=== PATIENT | female | born 1960 | race Caucasian/White ===

== ENCOUNTER → 2020-07-05 | Outpatient (CLI) | payer BC ==
[~2020-07-05] MED LIST: CEPH500 PO; DIPH50; ERGO400 PO; NAPR550 PO; OLME20; Percocet 5-3251 EACH PO; Zantac150 MG PO
[2020-07-05 20:58] LABS: CHOL/HDL RATIO 3.3; Cholesterol 273 mg/dL (50-200); HDL Cholesterol 82 mg/dL (>39); LDL/HDL RATIO 1.7; Low Density Lipoprotein Chol 138 mg/dL (0-110); Triglycerides 265 mg/dL (30-160); Very Low Density Lipoprot Chol 53 mg/dL (6-32)
== END ==
LOC: LAB 19:50 → LAB SHORT 19:50
PROVIDERS: Family Medicine
DX: Z13.29 Encounter for screening for other suspected endocrine disorder (principal); E78.5 Hyperlipidemia, unspecified
CPT/HCPCS: 80061; 84443

== ENCOUNTER 2021-06-06 21:20 | Emergency (ER) | payer BC ==
[~2021-06-06] VITALS: Ht 157.5 cm; Wt 115.7 kg
== END 2021-06-07 00:34 | disposition home or self-care (01) ==
LOC: ER 21:20
DX: F45.8 Other somatoform disorders (principal); R13.10 Dysphagia, unspecified; Z88.2 Allergy status to sulfonamides; Z88.5 Allergy status to narcotic agent; Z88.8 Allergy status to other drugs, medicaments and biological substances; Z87.891 Personal history of nicotine dependence
CPT/HCPCS: 71045; 96374; 99283-25; A9270; J1610

== ENCOUNTER → 2021-09-13 | Outpatient (CLI) | payer BC ==
[2021-09-13 18:54] LABS: BASOPHILS ABSOLUTE AUTO 0.08 K/mm3 (0.00-0.23); BASOPHILS PERCENT AUTO 1 % (0-2); EOSINOPHILS ABSOLUTE AUTO 0.14 K/mm3 (0.00-0.68); EOSINOPHILS PERCENT AUTO 1 % (0-6); Hematocrit 41.1 % (33.0-51.0); Hemoglobin 13.5 g/dL (11.5-16.0); IMMATURE GRAN ABSOLUTE AUTO 0.09 K/mm3 (0.00-0.10); IMMATURE GRAN PERCENT AUTO 1 % (0-1); LYMPHOCYTES ABSOLUTE AUTO 2.86 K/mm3 (0.84-5.20); LYMPHOCYTES PERCENT AUTO 24 % (21-46); MONOCYTES ABSOLUTE AUTO 1.17 K/mm3 (0.16-1.47); MONOCYTES PERCENT AUTO 10 % (4-13); Mean Corpuscular HGB 33.8 pg (26.0-34.0); Mean Corpuscular HGB Conc 32.8 g/dL (31.5-36.5); Mean Corpuscular Volume 103 fL (80-100); Mean Platelet Volume 10.2 fL (9.1-12.4); NEUTROPHILS ABSOLUTE AUTO 7.68 K/mm3 (1.96-9.15); NEUTROPHILS PERCENT AUTO 64 % (41-73); Platelet Count 313 K/mm3 (150-400); RDW Coefficient Variation 13.3 % (11.7-14.2); RDW Standard Deviation 51.1 fL (35.1-46.3); Red Blood Cell Count 3.99 M/mm3 (3.80-5.20); White Blood Cell Count 12.02 K/mm3 (4.00-11.30)
[2021-09-13 19:16] LABS: Albumin, Blood 3.5 g/dL (3.4-5.0); Albumin/Globulin Ratio 0.8 (0.8-1.8); Bilirubin, Total 0.2 mg/dL (0.1-1.0); Bun/Creatinine Ratio 29.5 (12.0-20.0); Calcium, Blood 10.2 mg/dL (8.5-10.1); Creatinine, Blood 1.12 mg/dL (0.40-1.00); Globulin, Blood 4.3 g/dL (2.2-4.0); Potassium, Blood 4.7 mmol/L (3.5-5.5); Total Protein, Blood 7.8 g/dL (6.4-8.2)
== END | disposition home or self-care (01) ==
LOC: LAB 15:30 → LAB SHORT 15:30
PROVIDERS: Physician Assistant
DX: I10 Essential (primary) hypertension (principal)
CPT/HCPCS: 80053; 85025

== ENCOUNTER → 2021-09-20 | Outpatient (CLI) | payer BC | LOC: LAB SHORT 17:00 → LAB 17:00 | DX: R10.9 Unspecified abdominal pain (principal) | CPT/HCPCS: 87086 ==

== ENCOUNTER → 2022-01-22 | Outpatient (CLI) | payer BC ==
[2022-01-24 08:11] LABS: HIV AB/P24 AG SCREEN Non Reactive (Non Reactive)
== END | disposition home or self-care (01) ==
LOC: LAB SHORT 19:09 → LAB 19:09
PROVIDERS: Family Medicine
DX: Z00.00 Encounter for general adult medical examination without abnormal findings (principal)
CPT/HCPCS: 87389

== ENCOUNTER 2022-05-02 08:58 | Day surgery (SDC) | payer BC ==
[~2022-05-02] VITALS: Ht 160 cm; Wt 108.3 kg
[2022-05-02] MEDS ORDERED: PROBIOTIC1 EA13 PO (09:40)
[2022-05-02] MEDS ORDERED: LANS30EC PO (09:42)
--- NOTE | 2022-05-02 10:39 | NUR ---
05/02/22 1039 Gigi Hoyt HISTORY,CHART, MEDICATIONS AND ALLERGIES REVIEWED BEFORE START OF PROCEDURE. PATIENT CONFIRMS NPO STATUS AND AGREES WITH SCHEDULED PROCEDURE. 3-LEAD EKG REVIEWED WITH PHYSICIAN PRIOR TO START OF PROCEDURE. MONITOR INTACT WITH CONTINUOUS PULSE OXIMETRY, 3-LEAD EKG, CAPNOGRAPHY AND INTERMITTENT BP. SUPPLEMENTAL O2 TO BE TITRATED THROUGHOUT PROCEDURE TO MAINTAIN O2 SATURATION ABOVE 90%. PATIENT DETERMINED TO BE ASA APPROPRIATE FOR MODERATE SEDATION PRIOR TO START OF PROCEDURE BY DR. YEH.
--- NOTE | 2022-05-02 11:43 | NUR ---
Patient up to Ambulate independently. Gait steady. Discharge instructions reviewed with patient. Patient verbalizes understanding. Copy given to patient to take home. Discharged via wheelchair to private car for ride home W/FRIEND
== END 2022-05-02 23:54 | disposition home or self-care (01) ==
LOC: ORSCMMR 08:58 → ORD 10:00 → ORSCMMR 23:54
PROVIDERS: Internal Medicine Gastroenterology
PROC: 0DB78ZX Excision of Stomach, Pylorus, Via Natural or Artificial Opening Endoscopic, Diagnostic (ICD-10-PCS; principal; 2022-05-02 10:00)
PROC: 0DJD8ZZ Inspection of Lower Intestinal Tract, Via Natural or Artificial Opening Endoscopic (ICD-10-PCS; principal; 2022-05-02 10:00)
PROC: 0DB48ZX Excision of Esophagogastric Junction, Via Natural or Artificial Opening Endoscopic, Diagnostic (ICD-10-PCS; principal; 2022-05-02 10:00)
PROC: 0DB58ZX Excision of Esophagus, Via Natural or Artificial Opening Endoscopic, Diagnostic (ICD-10-PCS; principal; 2022-05-02 10:00)
DX: Z12.11 Encounter for screening for malignant neoplasm of colon (principal); K21.9 Gastro-esophageal reflux disease without esophagitis; K29.70 Gastritis, unspecified, without bleeding; G47.33 Obstructive sleep apnea (adult) (pediatric); I10 Essential (primary) hypertension; E66.01 Morbid (severe) obesity due to excess calories; Z68.41 Body mass index [BMI] 40.0-44.9, adult; Z79.899 Other long term (current) drug therapy
CPT/HCPCS: 43239; G0121; 88305; 88342; A9270; J2250; J3010; J7120

== ENCOUNTER → 2022-09-03 | Outpatient (CLI) | payer BC ==
[~2022-09-03] MED LIST changes: +LANS30EC PO; +PROBIOTIC1 EA13 PO
== END ==
LOC: LAB 15:15 → LAB SHORT 15:15
DX: R07.0 Pain in throat (principal)
CPT/HCPCS: 87081

== ENCOUNTER → 2023-06-14 | Outpatient (CLI) | payer BC ==
[2023-06-17 11:07] LABS: Alanine Aminotransfer (ALT/SGP 29 U/L (12-78); Albumin, Blood 3.4 g/dL (3.4-5.0); Alk Phos 78 U/L (50-136); Anion Gap 5 mmol/L (6-16); Aspartate Aminotrans (AST/SGOT 25 U/L (12-37); Bilirubin, Total 0.3 mg/dL (0.1-1.0); Blood Urea Nitrogen 22 mg/dL (8-24); CHOL/HDL RATIO 3.8; CO2, Blood 26 mmol/L (21-32); Calcium, Blood 9.4 mg/dL (8.5-10.1); Chloride, Blood 107 mmol/L (98-108); Cholesterol 229 mg/dL (50-200); Globulin, Blood 3.4 g/dL (2.2-4.0); Glomerular Filtration Rate 56 (60-); Glucose, Blood 144 mg/dL (70-99); HDL Cholesterol 61 mg/dL (>39); LDL/HDL RATIO 1.9; Low Density Lipoprotein Chol 116 mg/dL (0-110); Potassium, Blood 4.6 mmol/L (3.5-5.5); Sodium, Blood 138 mmol/L (136-145); Total Protein, Blood 6.8 g/dL (6.4-8.2); Triglycerides 261 mg/dL (30-160); Very Low Density Lipoprot Chol 52 mg/dL (6-32)
== END ==
LOC: LAB SHORT 16:50 → LAB 16:50
PROVIDERS: Family Medicine
DX: Z13.6 Encounter for screening for cardiovascular disorders (principal); I10 Essential (primary) hypertension
CPT/HCPCS: 80053; 80061

== ENCOUNTER 2024-05-11 20:39 | Inpatient (IN) | payer BC ==
[~2024-05-11] VITALS: Ht 160 cm; Wt 120.2 kg
[2024-05-11 22:54] LABS: BASOPHILS ABSOLUTE AUTO 0.06 K/mm3 (0.00-0.23); BASOPHILS PERCENT AUTO 0 % (0-2); EOSINOPHILS ABSOLUTE AUTO 0.11 K/mm3 (0.00-0.68); EOSINOPHILS PERCENT AUTO 1 % (0-6); Hematocrit 39.9 % (33.0-51.0); Hemoglobin 13.5 g/dL (11.5-16.0); IMMATURE GRAN ABSOLUTE AUTO 0.08 K/mm3 (0.00-0.10); IMMATURE GRAN PERCENT AUTO 1 % (0-1); LYMPHOCYTES PERCENT AUTO 14 % (21-46); MONOCYTES ABSOLUTE AUTO 1.14 K/mm3 (0.16-1.47); MONOCYTES PERCENT AUTO 8 % (4-13); Mean Corpuscular HGB 34.2 pg (26.0-34.0); Mean Corpuscular HGB Conc 33.8 g/dL (31.5-36.5); Mean Corpuscular Volume 101 fL (80-100); Mean Platelet Volume 10.6 fL (9.1-12.4); NEUTROPHILS ABSOLUTE AUTO 10.22 K/mm3 (1.96-9.15); NEUTROPHILS PERCENT AUTO 76 % (41-73); Platelet Count 263 K/mm3 (150-400); RDW Coefficient Variation 13.8 % (11.7-14.2); Red Blood Cell Count 3.95 M/mm3 (3.80-5.20); White Blood Cell Count 13.51 K/mm3 (4.00-11.30)
[2024-05-11 23:06] LABS: Albumin, Blood 3.4 g/dL (3.4-5.0); Albumin/Globulin Ratio 0.8 (0.8-1.8); Bilirubin, Total 0.4 mg/dL (0.1-1.0); Bun/Creatinine Ratio 17.8 (12.0-20.0); Calcium, Blood 9.8 mg/dL (8.5-10.1); Creatinine, Blood 0.96 mg/dL (0.40-1.00); Globulin, Blood 4.2 g/dL (2.2-4.0); Potassium, Blood 4.5 mmol/L (3.5-5.5); Total Protein, Blood 7.6 g/dL (6.4-8.2)
[2024-05-11] MEDS ORDERED: CefTRIAXone Sodium 2,000 MG in NS 100 ML IV ONE (23:55)
[2024-05-11] MEDS ORDERED: NS 1,000 ML IV SCH (23:55)
[2024-05-11] MEDS ORDERED: Vancomycin HCL 2,000 MG in NS 500 ML IV ONE (23:55)
[2024-05-12] MEDS ORDERED: Ketorolac Tromethamine 15mg Vial IV ONE ×2 (00:05→23:55)
[2024-05-12] MEDS ORDERED: Vancomycin HCL 2,000 MG in NS 500 ML IV ONE (00:20)
[2024-05-12] MEDS ORDERED: Acetaminophen 325 MG TABLET PO PRN (01:20)
[2024-05-12] MEDS ORDERED: Ondansetron HCl 2 MG / ML 2ML Vial IV PRN (01:25)
[2024-05-12] MEDS ORDERED: NS 1,000 ML IV SCH (01:25)
[2024-05-12] MEDS ORDERED: FentaNYL Citrate 50 MCG/ML 2 ML Injection IV PRN (01:25)
[2024-05-12] MEDS ORDERED: Piperacillin/Tazobactam Sod 4.5 GM in NS 100 ML IV ONE (01:35)
[2024-05-12] MEDS ORDERED: LANSOPRAZOLE30 MG PO (01:44)
[2024-05-12] MEDS ORDERED: DIPH50 PO (01:45)
[2024-05-12] MEDS ORDERED: OLMESARTAN-HCT1 EAC3 PO (01:45)
[2024-05-12] MEDS ORDERED: VITAMIN D5000 UNIT PO (01:46)
[2024-05-12] MEDS ORDERED: Vitamin B Comple1 EA PO (01:47)
[2024-05-12] MEDS ORDERED: Piperacillin/Tazobactam Sod 4.5 GM in NS 100 ML IV SCH (02:00)
[2024-05-12] MEDS ORDERED: MethylPREDNISolone Sod Succ 125 MG Vial IV ONE (02:25)
[2024-05-12] MEDS ORDERED: Ketorolac Tromethamine 30mg Vial IV PRN (03:00)
[2024-05-12] MEDS ORDERED: Ketorolac Tromethamine 30mg Vial IV ONE (03:00)
[2024-05-12] MEDS ORDERED: NS 1,000 ML IV ONE (05:30)
[2024-05-12 05:59] LABS: BASOPHILS ABSOLUTE AUTO 0.05 K/mm3 (0.00-0.23); BASOPHILS PERCENT AUTO 0 % (0-2); EOSINOPHILS ABSOLUTE AUTO 0.05 K/mm3 (0.00-0.68); EOSINOPHILS PERCENT AUTO 0 % (0-6); Hematocrit 36.9 % (33.0-51.0); Hemoglobin 12.2 g/dL (11.5-16.0); IMMATURE GRAN ABSOLUTE AUTO 0.09 K/mm3 (0.00-0.10); IMMATURE GRAN PERCENT AUTO 1 % (0-1); LYMPHOCYTES PERCENT AUTO 14 % (21-46); MONOCYTES ABSOLUTE AUTO 0.73 K/mm3 (0.16-1.47); MONOCYTES PERCENT AUTO 5 % (4-13); Mean Corpuscular HGB 33.7 pg (26.0-34.0); Mean Corpuscular HGB Conc 33.1 g/dL (31.5-36.5); Mean Corpuscular Volume 102 fL (80-100); Mean Platelet Volume 9.9 fL (9.1-12.4); NEUTROPHILS ABSOLUTE AUTO 11.26 K/mm3 (1.96-9.15); NEUTROPHILS PERCENT AUTO 80 % (41-73); Platelet Count 235 K/mm3 (150-400); RDW Coefficient Variation 13.7 % (11.7-14.2); RDW Standard Deviation 50.5 fL (35.1-46.3); Red Blood Cell Count 3.62 M/mm3 (3.80-5.20); White Blood Cell Count 14.08 K/mm3 (4.00-11.30)
[2024-05-12 06:46] LABS: Albumin/Globulin Ratio 0.8 (0.8-1.8); Bilirubin, Total 0.7 mg/dL (0.1-1.0); Calcium, Blood 8.9 mg/dL (8.5-10.1); Creatinine, Blood 1.12 mg/dL (0.40-1.00); Globulin, Blood 3.8 g/dL (2.2-4.0); Potassium, Blood 4.6 mmol/L (3.5-5.5); Total Protein, Blood 6.8 g/dL (6.4-8.2)
[2024-05-12] MEDS ORDERED: Pantoprazole Sodium 40 MG Tab PO SCH (07:00)
[2024-05-12] MEDS ORDERED: Lactobacil 2-S.Thermo-Bifido 1 1 Cap PO SCH (09:00)
[2024-05-12] MEDS ORDERED: Losartan Potassium 50 MG Tab PO SCH (09:00)
--- NOTE | 2024-05-12 10:09 | NUR ---
PATIENT ARRIVED TO ROOM AT 10:09AM BY OLGA LIDIA. STAND-PIVOT TRANSFER D/T FOOT PAIN R/T.
[2024-05-12 10:27] VITALS: BP 145/92
--- NOTE | 2024-05-12 12:39 | NUR ---
DR AUSTIN TO BEDSIDE. SURGICAL INTERVENTION NOT INDICATED AT THIS TIME. OK FOR PT TO EAT. RECOMMENDS KEEPING OVERNIGHT FOR OBSERVATION AND LIKELY DC TOMORROW. DIET CHANGE IN CHART AND TRAY NOW ORDERED.
[2024-05-12] MEDS ORDERED: CefTRIAXone Sodium 1,000 MG in NS 100 ML IV SCH (14:00)
[2024-05-12 15:08] VITALS: BP 140/77
[2024-05-12] MEDS ORDERED: ZALE10 PO (19:38)
[2024-05-12] MEDS ORDERED: Norco 5-325 Ta1 EACH PO (19:38)
--- NOTE | 2024-05-12 20:19 | NUR ---
DAY SHIFT SUMMARY: A&Ox4. PLEASANT AND COOPERATIVE WITH CARE. CALLS APPROPRIATELY AND IS ABLE TO ADVOCATE NEEDS EFFECTIVELY. LEFT FOOT SWOLLEN WITHOUT WITH SLIGHT REDNESS. SIGNIFICANTLY IMPROVED FROM WHEN SHE CAME IN, ACCORDING TO PATIENT. AMBULATING WITH FWW SECONDARY TO PAIN IN LEFT FOOT; INDEPENDENT AT BASELINE. MEDS WHOLE WITH FLUIDS. DID NOT REQUIRE PAIN COVERAGE TODAY. MEDS RECONCILED. DR AUSTIN CONSULTED AND RULED NO SURGICAL INTERVENTIONS NECESSARY. RECOMMENDED SHE STAY THROUGHOUT THE NIGHT TO ENSURE CONTINUES TO HEAL AND WILL LIKELY DISCHARGE TOMORROW. TELE NSR. Hx MULTIPLE SURGERIES INCLUDING SPLENECTOMY. BED IN LOWEST POSITION. CALL LIGHT WITHIN REACH. ALL NEEDS MET. REPORT TO ONCOMING RN.
[2024-05-12 20:21] VITALS: BP 133/75
[2024-05-12] MEDS ORDERED: DiphenhydrAMINE HCl 50 MG Cap PO SCH (21:00)
[2024-05-12] MEDS ORDERED: Vancomycin HCL 2,000 MG in NS 500 ML IV SCH (23:00)
[2024-05-13 03:24] VITALS: BP 149/85
[2024-05-13 05:17] LABS: BASOPHILS ABSOLUTE AUTO 0.04 K/mm3 (0.00-0.23); BASOPHILS PERCENT AUTO 0 % (0-2); EOSINOPHILS ABSOLUTE AUTO 0.01 K/mm3 (0.00-0.68); EOSINOPHILS PERCENT AUTO 0 % (0-6); Hemoglobin 11.4 g/dL (11.5-16.0); IMMATURE GRAN ABSOLUTE AUTO 0.08 K/mm3 (0.00-0.10); IMMATURE GRAN PERCENT AUTO 1 % (0-1); LYMPHOCYTES PERCENT AUTO 12 % (21-46); MONOCYTES ABSOLUTE AUTO 1.44 K/mm3 (0.16-1.47); MONOCYTES PERCENT AUTO 9 % (4-13); Mean Corpuscular HGB 34.1 pg (26.0-34.0); Mean Corpuscular HGB Conc 33.5 g/dL (31.5-36.5); Mean Corpuscular Volume 102 fL (80-100); NEUTROPHILS ABSOLUTE AUTO 11.96 K/mm3 (1.96-9.15); NEUTROPHILS PERCENT AUTO 78 % (41-73); Platelet Count 243 K/mm3 (150-400); RDW Coefficient Variation 13.6 % (11.7-14.2); RDW Standard Deviation 50.3 fL (35.1-46.3); Red Blood Cell Count 3.34 M/mm3 (3.80-5.20); White Blood Cell Count 15.33 K/mm3 (4.00-11.30)
--- NOTE | 2024-05-13 05:19 | NUR ---
SHIFT SUMMARY NOC PT A/O X 4. PLEASANT AND COOPERATIVE WITH CARE. VSS. NO ACUTE CHANGES TO REPORT. PT L FOOT AND ANKLE HAVE MINIMAL REDNESS, BUT STILL SLIGHTLY WARM TO TOUCH. PT REPORTED PAIN 3/10 AND DID NOT REQUIRE PAIN RX. ON TELE SINUS RHYTHM @ 75 BPM. PT ABLE TO AMBULATE WITH SBA AND FWW WITHOUT ISSUE. PT POSSIBLE DISCHARGE TODAY. PT CURRENTLY RESTING WITH BED IN LOWEST POSITION, AND CALL LIGHT WITHIN REACH.
[2024-05-13 06:17] LABS: Bun/Creatinine Ratio 22.7 (12.0-20.0); Calcium, Blood 8.7 mg/dL (8.5-10.1); Creatinine, Blood 0.92 mg/dL (0.40-1.00)
[2024-05-13 07:34] VITALS: BP 145/90
[2024-05-13] MEDS ORDERED: Diphth,Pertuss(Acell),Tet Vac 0.5 ML VIAL IM SCH (10:00)
[2024-05-13] MEDS ORDERED: CEPH500 PO (13:54)
[2024-05-13 14:51] VITALS: BP 131/84
--- NOTE | 2024-05-13 17:40 | NUR ---
PT DISCHARGED HOME. DISCHARGE INSTRUCTIONS DISCUSSED WITH PT. NO QUESTIONS OR CONCERNS AT THIS TIME
== END 2024-05-13 16:50 | disposition home or self-care (01) | DRG 603 ==
LOC: ER 20:39 → ERHOLD 05-12 01:19 → MEDS 05-12 01:19 → ENPENDDIS 05-13 12:53 → MEDS 05-13 16:50
PROVIDERS: Family Medicine; Physician Assistant; ADMIT Internal Medicine
DX: L03.116 Cellulitis of left lower limb (principal); Q89.01 Asplenia (congenital); K21.9 Gastro-esophageal reflux disease without esophagitis; R73.9 Hyperglycemia, unspecified; M65.072 Abscess of tendon sheath, left ankle and foot; I10 Essential (primary) hypertension; Z79.899 Other long term (current) drug therapy; Z88.2 Allergy status to sulfonamides; Z88.8 Allergy status to other drugs, medicaments and biological substances; Z88.5 Allergy status to narcotic agent; Z98.1 Arthrodesis status; Z90.710 Acquired absence of both cervix and uterus; Z98.890 Other specified postprocedural states; Z87.891 Personal history of nicotine dependence
CPT/HCPCS: 36415; 73701; 80048; 80053; 82550; 83605; 83880; 85025; 87040; 90471; 90715; 94660; 96365-59; 96375-59; 99284-25; A9270; J0696; J1885; J2543; J2919; J3010; J3370; J7030; J7040; Q9967

== ENCOUNTER 2025-06-16 05:55 | Emergency (ER) | payer BC ==
[~2025-06-16] VITALS: Ht 160 cm; Wt 120.2 kg
[~2025-06-16 05:55] MED LIST changes: +DIPH50 PO; +LANSOPRAZOLE30 MG PO; +Norco 5-325 Ta1 EACH PO; +OLMESARTAN-HCT1 EAC3 PO; +VITAMIN D5000 UNIT PO; +Vitamin B Comple1 EA PO; +ZALE10 PO
[2025-06-16] MEDS ORDERED: NS 1,000 ML IV SCH (07:55)
[2025-06-16] MEDS ORDERED: ALBU90OI INH (08:58)
[2025-06-16 09:16] VITALS: BP 163/82
== END 2025-06-16 09:30 | disposition home or self-care (01) ==
LOC: ER 05:55
DX: J20.9 Acute bronchitis, unspecified (principal); I10 Essential (primary) hypertension; K21.9 Gastro-esophageal reflux disease without esophagitis; G47.30 Sleep apnea, unspecified; Z88.2 Allergy status to sulfonamides; Z79.899 Other long term (current) drug therapy; Z79.82 Long term (current) use of aspirin; Z87.891 Personal history of nicotine dependence; Z90.710 Acquired absence of both cervix and uterus
CPT/HCPCS: 71046; 99284-25; J7030